=== PATIENT | female | born 1990 | race Caucasian/White ===

== ENCOUNTER 2017-07-31 14:42 | Observation (INO) ==
[2017-07-31 14:07] LABS: Amphetamine Screen,Urine Negative ng/mL (Cutoff=1000); Barbiturate Screen,Urine Negative ng/mL (Cutoff=200); Benzodiazepines Screen,Urine Negative ng/mL (Cutoff=200); Cannabinoid Screen,Urine Negative ng/mL (Cutoff = 50); Cocaine Screen,Urine Negative ng/mL (Cutoff= 300); Opiate Screen,Urine Negative ng/mL (Cutoff=300); Phencyclidine Screen,Urine Negative ng/mL (Cutoff=25)
[~2017-07-31 14:42] MED LIST: Ringers Solution, Lactated 1,000 ML IVC SCH; Ringers Solution, Lactated 1,000 ML ONE
--- NOTE | 2017-07-31 16:59 | OB/GYN Progress Note ---
Date of Encounter: 07/31/17 Time of Encounter: 16:57 - Assessment and Plan (1) 27 weeks gestation of Current Visit: Yes Status: Acute (2) Fall (on) (from) other stairs and steps, initial encounter Current Visit: Yes Status: Acute Contractions decreased after fluid bolus. Cervical exam shows closed internal OS. US obtained. A single live intrauterine is present. heart rate measures 131 beats per minute. There is normal body and limb movement. The fetus is in transverse position. The placenta is located anterior. Normal sonographic appearance of the placenta with no ultrasound findings to suggest abruption. The amniotic fluid volume is normal subjectively. Discussed with Dr. Yip. tracing appropriate for 27 weeks. Will discharge home with when to return precautions. Pt verbalizes understanding. Subjective - Subjective Interval history: 27+ weeks gestation presents to triage after fall down outside steps of home. Patient states she was carrying her 1-year-old when she fell striking her right hip and leg while falling down outside stairs. Reports good movement and contractions that are occasional tightness in her abdomen but not painful, denies vaginal bleeding or leaking of fluid. Blood type O positive Antepartum ROS: movement normal, contractions, no loss of fluid, no vaginal bleeding Objective - Vital Signs Vital Signs: Intake and Output 07/31/17 07/31/17 07/31/17 07:59 15:59 23:59 Other: Weight 118.5 kg Patient Weight 07/31/17 23:59 Weight 118.5 kg - Exam FHR: auscultation normal FHR comments: baseline 135 Auscultation: bilateral: normal Abdomen: Present: normal appearance, soft, gravid Uterus: Present: normal Cervical dilation: 1 external OS, closed internal OS
== END 2017-07-31 17:11 | disposition home or self-care (01) ==
LOC: 1NENULAB
PROVIDERS: ADMIT Obstetrics & Gynecology; ATTEND Obstetrics & Gynecology

== ENCOUNTER → 2017-09-26 17:50 | Observation (INO) ==
--- NOTE | 2017-09-26 16:28 | OB/GYN Progress Note ---
Date of Encounter: 09/26/17 Time of Encounter: 16:24 - Assessment and Plan (1) NST (non-stress test) with decelerations Current Visit: Yes Status: Acute Patient was seen in the office today and had late deceleration during her NST and was sent to L&D Continue monitoring FHR in the 140s NPO UDS NST reactive in triage. Discharge home after 2 hours of continuous monitoring. POC discussed with Dr. Casas (2) 35 weeks gestation of Current Visit: Yes Status: Acute Patient is 35w2d. Subjective - Subjective Interval history: Patient is a 27 year old femal at 35w2d presents to L&D for a decel on NST that she had today in the office. Patient states that she has been having contractions since her NST but has not been timing them. Denies loss of fluid, vaginal bleeding or discharge. Reports good movement. States the has been complicated by gestational diabetes that she takes metformin and insulin. States that she sees Dr. Mejia Antepartum ROS: new complaints (Decels on NST), movement normal, contractions, no loss of fluid, no vaginal bleeding Objective - Vital Signs Vital Signs: Intake and Output 09/26/17 09/26/17 09/26/17 07:59 15:59 23:59 Other: Weight 120.3 kg Patient Weight 09/26/17 23:59 Weight 120.3 kg - Exam FHR: auscultation normal (FHR in the 140s) Auscultation: bilateral: normal Abdomen: Present: normal appearance, soft, gravid
[2017-09-26 16:32] LABS: Amphetamine Screen,Urine Negative ng/mL (Cutoff=1000); Barbiturate Screen,Urine Negative ng/mL (Cutoff=200); Benzodiazepines Screen,Urine Negative ng/mL (Cutoff=200); Cannabinoid Screen,Urine Negative ng/mL (Cutoff = 50); Cocaine Screen,Urine Negative ng/mL (Cutoff= 300); Opiate Screen,Urine Negative ng/mL (Cutoff=300); Phencyclidine Screen,Urine Negative ng/mL (Cutoff=25)
== END | disposition home or self-care (01) ==
LOC: 1NENULAB
PROVIDERS: ADMIT Student in an Organized Health Care Education/Training Program; ATTEND Student in an Organized Health Care Education/Training Program

== ENCOUNTER 2017-10-10 08:00 | Inpatient (IN) ==
[2017-10-10] MEDS ORDERED: Ondansetron 4 MG/2 ML VIAL IVP PRN (09:01)
[2017-10-10] MEDS ORDERED: Famotidine 20 MG/2 ML VIAL IVP PRN (09:01)
[2017-10-10] MEDS ORDERED: *HR* Nalbuphine 20 MG/ML AMPUL IVP PRN (09:01)
[2017-10-10] MEDS ORDERED: Naloxone 0.4 MG/ML INJ IVP PRN (09:01)
[2017-10-10] MEDS ORDERED: miSOPROStol 25 MCG TABLET PO PRN (09:01)
[2017-10-10 09:15] LABS: Basophils % 0.1 %; Eosinophils # 0.1 K/mcL (0.0-0.6); Eosinophils % 0.6 %; Hematocrit 36.9 % (35.3-44.9); Hemoglobin 12.3 g/dL (11.5-15.4); Immature Granulocytes % 0.5 % (0-4); Lymphocytes # 2.1 K/mcL (0.6-4.6); Lymphocytes % 22.7 %; Mean Corpuscular HGB Conc 33.3 g/dL (31.6-35.5); Mean Corpuscular Hemoglobin 30.4 pg (28.0-33.3); Mean Corpuscular Volume 91.3 fL (83.0-100.0); Mean Platelet Volume 9.5 fL (9.4-12.4); Monocytes # 0.8 K/mcL (0.0-1.3); Monocytes % 8.2 %; Neutrophils # 6.3 K/mcL (1.6-8.9); Platelet Count 248 K/mcL (140-400); Red Blood Count 4.04 M/mcL (3.82-4.97); Red Cell Distribution Width 13.8 % (11.5-14.5); Segmented Neutrophils % 67.9 %
[2017-10-10] MEDS ORDERED: Ringers Solution, Lactated 1,000 ML IVC SCH (09:15)
[2017-10-10 09:31] LABS: BUN/Creatinine Ratio 15 (6-26); Blood Urea Nitrogen 8 mg/dL (6-20); Carbon Dioxide 23 mEq/L (23-29); Chloride 108 mEq/L (98-107); Glucose 86 mg/dL (70-105); Osmolality,Calculated 282 (280-300); Potassium 3.8 mEq/L (3.5-5.1); Sodium 137 mEq/L (136-145); eGFR For African Americans > 60 (> 60); eGFR For Non-African Americans > 60 (> 60)
[2017-10-10 09:52] LABS: Amphetamine Screen,Urine Negative ng/mL (Cutoff=1000); Barbiturate Screen,Urine Negative ng/mL (Cutoff=200); Benzodiazepines Screen,Urine Negative ng/mL (Cutoff=200); Cannabinoid Screen,Urine Negative ng/mL (Cutoff = 50); Cocaine Screen,Urine Negative ng/mL (Cutoff= 300); Opiate Screen,Urine Negative ng/mL (Cutoff=300); Phencyclidine Screen,Urine Negative ng/mL (Cutoff=25)
--- NOTE | 2017-10-10 10:09 | OB Labor Progress Note ---
Date of Encounter: 10/10/17 Time of Encounter: 10:06 Labor Progress Note - Subjective Subjective: Pt resting comfortably with no complaints at this time. - Cervix Cervix: 1/50/-3 - Heart Tones Heart Tones: Category II, one possible deceleration noted, moderate variability with accels now - Petros Petros: irregular UC - Interventions Interventions: Chan balloon placed in cervix using sterile technique. Balloon inflated with 60ml sterile water. Pt tolerated well. - Plan Plan: Continue to monitor. Anticipate .
--- NOTE | 2017-10-10 10:10 | OB/GYN History & Physical ---
Date of Encounter: 10/10/17 Time of Encounter: 09:48 Assessment and Plan (1) 37 weeks gestation of Current visit: Yes Status: Acute Plan: - admit to labor and delivery for induction of labor -obtain CBC and blood type and screen - Induced with Cytotect - augmented with nicole bulb with 60cc - FHT reassuring. FHR baseline= 150 - accu cheks Q4 hrs - anticipate normal IVD (2) Encounter for induction of labor Current visit: Yes Status: Acute early induction 2/2 hx of LGA and gestational diabetes. (3) Gestational diabetes Current visit: Yes Status: Acute accu cheks Q4 hrs Qualifiers: Gestational diabetes mellitus control: insulin-controlled Trimester: third trimester Qualified Code(s): O24.414 - Gestational diabetes mellitus in , insulin controlled (4) Morbid obesity with BMI of 45.0-49.9, adult Current visit: Yes Status: Acute (5) LGA (large for gestational age) fetus affecting management of mother Current visit: Yes Status: Acute hx of LGA 10lbs 14oz Qualifiers: Fetus number: single or unspecified fetus Trimester: third trimester Qualified Code(s): O36.63X0 - Maternal care for excessive growth, third trimester, not applicable or unspecified History of Present Illness Chief complaint: induction of labor HPI: Ms. Arechiga is a 27 year old female at 37 +2 days presented to labor and delivery for induction of labor 2/2 gestational diabetes and previous LGA at 10lbs 14oz. Patient denies having contractions, vaginal bleeding, or loss of fluid. Denies [place], changes in vision, dysuria, nausea, vomiting, fevers or chills. Patients is complicated by gestational diabetes, previous LGA , and morbid obesity. Patient's last dose of insulin was 6 units of insulin last night. Patient's morning glucose was 82. This past week morning glucoses have been between 69-85. PNL: Blood type O+, RPR neg, RI, HBsAg neg, HIV neg, GBS neg Past Med Surg Social Fam HX - Past Medical History Medical history: no medical history Psychiatric history: no psych history - Past Surgical History Surgical History: no surgical history - Social History Smoking Status: Never smoker Smokeless Tobacco Status: No Alcohol use: none Drug use: none - Family History Father Living Status: Still Living Hx Family Cardiac Disorders: Yes (hypertension) Hx Family Respiratory Disorders: No Hx Family Cancer: No Hx Family GI Disorders: No Hx Family Genitourinary Disorders: No Hx Family Endocrine Disorder: No Hx Family Musculoskeletal Disorders: No Hx Family Neuromuscular Disorders: No Hx Family Neurologic Disorders: No Hx Family HEENT Disorders: No Hx Family Autoimmune Disorders: No Hx Family Reproductive Disorders: No Hx Family Psychosocial Disorders: No Hx Family Medical Disorders: No Mother Living Status: Still Living Hx Family Cardiac Disorders: No Hx Family Respiratory Disorders: No Hx Family Cancer: No Hx Family GI Disorders: No Hx Family Endocrine Disorder: No Hx Family Neuromuscular Disorders: No Hx Family Neurologic Disorders: No Hx Family HEENT Disorders: No Hx Family Autoimmune Disorders: No Obstetrical History - Pregnancies : 7 Para: 3 Term: 0 : 0 Ab's: 3 Livin - History/Complications History/Complications: Total pregnancies 7. Total living children 3. Miscarriage(s) 3. # 1: spontaneous . # 2: normal spontaneous vaginal delivery () , 39 w, 8 Lbs 8 Oz, Male, Bjorn. # 3 spontaneous . # 4: normal spontaneous vaginal delivery (), 39 w, 9 Lb 7 Oz, Male, Yasmany. # 5: normal spontaneous vaginal delivery (), 40 w, 10 Lb 14 Oz, Male, Talat. # 6 spontaneous . Medications and Allergies Aspirin [Lo-Dose Aspirin EC] 81 mg PO DAILY 12/19/16 [History] Insulin NPH [HumuLIN NPH] 3 units SQ HS 07/31/17 [History] metFORMIN [Glucophage] 1,000 mg PO DAILY 07/31/17 [History] Vitamins 1 tab PO DAILY 09/26/17 [History] 3 Allergy/AdvReac Type Severity Reaction Status Date / Time No Known Allergies Allergy Verified 02/27/17 13:18 Review of System OB All systems PM: reviewed and no additional remarkable complaints except as stated Exam - Vital Signs Vital signs: BP: 133/84, HR: 90 - Constitutional Constitutional: well nourished, no acute distress, morbidly obese - HEENT HEENT: Normocephaly, Mucus Membranes Moist - Neck Neck exam: full ROM - Lungs Respiratory exam: CTAB - Cardiovascular Cardiovascular exam: RRR - Abdomen Abdomen: Present: non tender - Extremities Extremities exam: pedal edema - Vulva Vulva: bilateral: normal - Vagina Vagina: Present: normal moisture - Cervix Dilation: 2 (per nurse) Effacement: 60 (per nurse) Station: -3 - Uterus Uterus exam: Present: normal size Results Result Diagrams: 10/10/17 08:40 10/10/17 08:40 Abnormal lab results Chloride 108 mEq/L (98-107) H 10/10/17 08:40 Creatinine 0.53 mg/dL (0.60-1.20) L 10/10/17 08:40 All other labs normal. - VTE Reasons for not Prescribing Prophylaxis: Treatment not Indicated - Low risk for VTE
--- NOTE | 2017-10-10 12:26 | OB Labor Progress Note ---
Date of Encounter: 10/10/17 Time of Encounter: 12:24 Labor Progress Note - Subjective Subjective: Pt comfortable at this time with nicole out. - Cervix Cervix: 4-5/70/-2 - Heart Tones Heart Tones: Category I - [place]: irregular - Interventions Interventions: AROM for moderate amount clear fluid. - Plan Plan: Continue to monitor. Epidural when requested. Anticipate .
[2017-10-10] MEDS ORDERED: Oxytocin 20 units/ LR 1000 mL 20 UNIT/1,000 ML BAG IVC SCH (15:15)
[2017-10-10] MEDS ORDERED: Epidural Premix (fent/bupiv) 110 ML EP ONE ×2 (17:28→23:47)
[2017-10-10] MEDS ORDERED: Epidural Premix (fent/bupiv) 110 ML EP SCH (17:30)
--- NOTE | 2017-10-10 20:34 | Anesthesia Evaluation PreOp ---
Date of Encounter: 10/10/17 Time of Encounter: 17:30 - Past History Planned Operation: molly Cardiac History: Denies any Significant Hx Pulmonary History: Denies Any Significant HX QUALITY CONSULTANT History: Denies Any Significant HX Other Medical History: Denies Any Significant HX Anesthesia History: No Prior Anesthetic Complications : Yes Test: Positive Alcohol Use: none Drug use: none Medications and Allergies Aspirin [Lo-Dose Aspirin EC] 81 mg PO DAILY 12/19/16 [History] Insulin NPH [HumuLIN NPH] 3 units SQ HS 07/31/17 [History] metFORMIN [Glucophage] 1,000 mg PO DAILY 07/31/17 [History] Vitamins 1 tab PO DAILY 09/26/17 [History] 3 Allergy/AdvReac Type Severity Reaction Status Date / Time No Known Allergies Allergy Verified 02/27/17 13:18 - Meds/Allergy Pre-op Review Medications Reviewed: Yes Allergies Reviewed: Yes Beta Blockers on Current Med List: No Anesthesia Results - Labs 10/10/17 08:40 10/10/17 08:40 Anesthesia Exam Height: 64 Weight: 120 NPO (# of Hours): mn Pain Scale: 8 - HEENT Pupil (Motor): Pupils equal Mallampati: II Teeth: Normal Oral Opening: Greater than 3 - QUALITY CONSULTANT LOC: Oriented QUALITY CONSULTANT Motor: Normal RUE, Normal LUE, Normal RLE, Normal LLE, Normal Face QUALITY CONSULTANT Sensory: Normal: RUE, LUE, RLE, LLE, Face - Cardiac Rhythm: Regular Murmur: None JVD: No Carotid Bruit: No - Pulmonary Breath Sounds: bilateral Clear Respiratory Effort: Symmetrical Anesthesia Assess/Plan ASA Score: 2 Modified Brian Scale for Level of Consciousness: Cooperative, oriented, and tranquil Anesthetic Plan: Regional Autologous Blood: No Monitoring Plan: Standard Monitors
--- NOTE | 2017-10-10 20:36 | Anesthesia Procedures ---
Date of Encounter: 10/10/17 Time of Encounter: 17:30 Procedures: Anesthesia - Epidural/Spinal Patient ID/Chart reviewed: Yes Patient examined: Yes OB Eval: Gestational age: 37.2 OB Eval: : 7 OB Eval: Hx Para: 3 OB Eval: Dilated at (cm): 5 OB Eval: Contractions: Non-stressed pattern Consent Obtained: Yes Site Prep: Aseptic Technique, Sterile prep and drape, Povidone-Iodine 1% Patient position: upright Amount of Local Anesthetic used: 3 Touhy Needle Gauge: 18 Touhy Needle Depth (cm): 8 Catheter Depth at Skin (cm): 9 Test Dose (1.5% Lido + Epi): Volume given (mls): 3 Test Dose Result: Negative Loading Dose Administered: Thru Catheter Infusion Rate (mls/hr): [address]: Tegaderm, Tape Interspace Used: L4-L5 Loss of Resistance (GUS): Yes Blood: No CSF: No Paresthesia: No Vitals + FHT's: stable throughout see nursing notes
--- NOTE | 2017-10-10 20:38 | OB Labor Progress Note ---
Date of Encounter: 10/10/17 Time of Encounter: 20:30 Labor Progress Note - Subjective Subjective: Pt comfortable with epidural. - Cervix Cervix: 5-6/80/-2 - Heart Tones Heart Tones: Category II, occassional variables, moderate variability - Interventions Interventions: IUPC and FSE placed - Plan Plan: Continue to monitor. Reposition frequently. Anticipate .
[2017-10-10] MEDS ORDERED: 0.9 % Sodium Chloride 1,000 ML ONE (22:41)
--- NOTE | 2017-10-10 22:52 | OB Labor Progress Note ---
Date of Encounter: 10/10/17 Time of Encounter: 22:50 Labor Progress Note - Subjective Subjective: Pt comfortable - Cervix Cervix: 7/80/-2 - Heart Tones Heart Tones: Category II, variable decelerations present - [place]: 2-3.5 - Interventions Interventions: IUPC replaced, pt repositioned, amnioinfusion ordered - Plan Plan: Amnioinfusion, anticipate
[2017-10-10] MEDS ORDERED: ROPIVACAINE HCL/PF 0.5% 30 ML VIAL ONE (23:55)
[2017-10-11] MEDS ORDERED: Metoclopramide 10 MG/2 ML VIAL IVP ONE (02:31)
--- NOTE | 2017-10-11 02:32 | OB Labor Progress Note ---
Date of Encounter: 10/11/17 Time of Encounter: 20:00 Labor Progress Note - Subjective Subjective: Patient having multiple variables and has not progressed from 7-8cm, -2, and 80 % in 4 hours. - Vital Signs Vital Signs: stable. - Cervix Cervix: 7-8cm per Dr. Mejia - Heart Tones Heart Tones: FHR baseline = 140 with accelerations but multiple variables - [place]: contractions 2-4 minutes - Interventions Interventions: cervical exam performed: 7-8cm, 80%, and -2 - Plan Plan: Proceed to CS for failure to progress.
[2017-10-11] MEDS ORDERED: *HR* Phenylephrine 10 MG/ML VIAL ONE (02:39)
[2017-10-11] MEDS ORDERED: Ringers Solution, Lactated 1,000 ML ONE ×2 (02:40→03:12)
[2017-10-11] MEDS ORDERED: *HR* Oxytocin 10 UNIT/ML VIAL IM ONE ×2 (02:40→03:22)
[2017-10-11] MEDS ORDERED: Lidocaine/EPI 1:200k 2% PF 20 ML VIAL ONE (02:40)
[2017-10-11] MEDS ORDERED: Dexamethasone 4 MG/ML VIAL ONE (02:43)
[2017-10-11] MEDS ORDERED: Ondansetron 4 MG/2 ML VIAL ONE (02:43)
[2017-10-11] MEDS ORDERED: EPHEDrine 50 MG/ML VIAL ONE (02:44)
[2017-10-11] MEDS ORDERED: *HR* Morphine 2 MG/ML SYRINGE IVP PRN (03:29)
[2017-10-11] MEDS ORDERED: Ondansetron 4 MG/2 ML VIAL IVP ONE (03:29)
[2017-10-11] MEDS ORDERED: *HR* Meperidine 25 MG/ML SYRINGE IVP PRN (03:29)
[2017-10-11] MEDS ORDERED: Morphine Sulfate/PF 5mg/10mL Vial ONE (03:34)
--- NOTE | 2017-10-11 04:21 | OB/GYN Procedure Note ---
Section - Date of procedure: 10/11/17 Preop diagnosis: arrest of descent, arrest of dilation Post-op diagnosis: same Procedure: primary low transverse Surgeon: Kamran Mejia Estimated blood loss (cc): 700 Was there an material assistant present: Yes Reformatory Attendant: Kari Flores Anesthesiologist: Axel Durham Anesthesia Type: None section complications: none Disposition: PACU Specimens: Placenta - Infant (s) Infant A Delivery Date: 10/11/17 Presentation: vertex Position: MARCI Gender: Male Viability: Viable Pounds: 8 Ounces: 7 at 1 minute: 7 at 5 minutes: 8 Cord: nuchal reduced - Narrative Narrative: Patient was taken to the operating room. After satisfactory anesthesia was achieved, she was placed in supine position, Chan catheter inserted, and prepped and draped in usual manner. After appropriate timeout, the abdomen was entered through standard Maylard incision. The Tita retractor was placed. The peritoneum overlying the lower uterine segment was incised in a U-shaped fashion. Uterine cavity was entered sharply extended laterally. With fundal pressure the head was delivered. Nuchal Cord was relieved. The remainder of the was removed, the cord double clamped and cut, and infant handed to nursery staff for further evaluation. Placenta was removed and sent to pathology for analysis. The uterus was closed in a single layer using 0 Monocryl. After assurance of hemostasis, the abdomen was closed in a fashion using 0 Vicryl in the fascia and 3-0 Monocryl on the skin. Sterile dressing was applied. She did well and was taken to recovery room in satisfactory condition. Counts were correct.
[2017-10-11] MEDS ORDERED: Metoclopramide 10 MG/2 ML VIAL IVP PRN (06:41)
[2017-10-11] MEDS ORDERED: Oxytocin 20 units/ LR 1000 mL 20 UNIT/1,000 ML BAG IVC SCH (06:41)
[2017-10-11] MEDS ORDERED: Acetaminophen 325 MG TABLET PO PRN (06:41)
[2017-10-11] MEDS ORDERED: Sennosides 8.6 MG TABLET PO PRN (06:41)
[2017-10-11] MEDS ORDERED: Ondansetron 4 MG/2 ML VIAL IVP PRN (06:41)
[2017-10-11] MEDS ORDERED: Simethicone 80 MG TAB.CHEW PO PRN (06:41)
[2017-10-11] MEDS ORDERED: NON-FORMULARY MEDICATION 1 EACH EACH (Prenatal Vitamins 1 TAB) PO SCH (09:00)
[2017-10-11] MEDS: Ibuprofen 600 MG TABLET PO PRN ×2 (15:53→22:05)
[2017-10-12] MEDS: Ibuprofen 600 MG TABLET PO PRN ×4 (04:19→22:32)
[2017-10-12 06:59] LABS: Basophils % 0.2 %; Eosinophils # 0.1 K/mcL (0.0-0.6); Eosinophils % 0.7 %; Hematocrit 29.7 % (35.3-44.9); Immature Granulocytes % 0.4 % (0-4); Lymphocytes % 27.9 %; Mean Corpuscular Hemoglobin 30.5 pg (28.0-33.3); Mean Corpuscular Volume 95.5 fL (83.0-100.0); Mean Platelet Volume 9.6 fL (9.4-12.4); Monocytes % 9.6 %; Neutrophils # 6.6 K/mcL (1.6-8.9); Platelet Count 184 K/mcL (140-400); Red Blood Count 3.11 M/mcL (3.82-4.97); Red Cell Distribution Width 14.2 % (11.5-14.5); Segmented Neutrophils % 61.2 %
[2017-10-12 07:00] LABS: Hemoglobin 9.5 g/dL (11.5-15.4)
[2017-10-12] MEDS: Prenatal Vit/FA 1 EACH TABLET PO SCH (08:59)
--- NOTE | 2017-10-12 10:54 | OB/GYN Progress Note ---
Date of Encounter: 10/12/17 Time of Encounter: 09:25 - Assessment and Plan (1) 37 weeks gestation of Current Visit: Yes Status: Acute Plan: - ANYA dressing in place, without drainage present - continue to encourage - continue current management except stop accu checks - anticipate discharge tomorrow I examined this patient and my medical decision-making was reviewed with the Resident Physician. I agree with the documented findings, disposition and treatment plan as described except to the extent set forth below. Michael Casas MD (2) Encounter for induction of labor Current Visit: Yes Status: Acute early induction 2/2 hx of LGA and gestational diabetes. (3) Gestational diabetes Current Visit: Yes Status: Acute accu checks discontinued today. Qualifiers: Gestational diabetes mellitus control: insulin-controlled Trimester: third trimester Qualified Code(s): O24.414 - Gestational diabetes mellitus in , insulin controlled (4) Morbid obesity with BMI of 45.0-49.9, adult Current Visit: Yes Status: Acute (5) LGA (large for gestational age) fetus affecting management of mother Current Visit: Yes Status: Acute hx of LGA 10lbs 14oz Qualifiers: Fetus number: single or unspecified fetus Trimester: third trimester Qualified Code(s): O36.63X0 - Maternal care for excessive growth, third trimester, not applicable or unspecified Subjective - Subjective Principal diagnosis: induction of labor Interval history: Patient is doing well this morning. Pain is currently well controlled on Motrin. Admits to light lochia, + voiding, + gas. Tolerating regular diet without N/V. Patient's blood glucoses ave not needed intervention. Patient is breast feeding which was going well until baby had to be taken to the nursery for low blood glucoses. Patient reports: appetite normal, voiding normally, pain well controlled, ambulating normally [place]: nursing well, other (low blood glucose) Objective - Vital Signs Latest vital signs: Vital Signs Temp Pulse Resp BP Pulse Ox 10/12/17 09:30 97.6 F 72 18 97/66 98 10/12/17 04:15 98.6 F 75 16 108/71 96 10/11/17 23:30 98.1 F 76 16 113/73 97 10/11/17 19:45 98.5 F 74 16 108/71 97 10/11/17 16:00 98.6 F 76 16 111/76 98 10/11/17 12:56 98.4 F 67 16 102/54 96 10/11/17 12:00 16 Intake and Output 10/11/17 10/12/17 10/12/17 23:59 07:59 15:59 Intake Total 600 / 600 400 / 400 200 / 200 Output Total 1675 / 1675 500 / 500 Balance -1075 / -1075 -100 / -100 200 / 200 Intake: Oral 600 / 600 400 / 400 200 / 200 Output: Urine 200 / 200 500 / 500 Catheter 1475 / 1475 Other: Weight 114.714 kg Blood Glucose* 126 Patient Weight 10/12/17 23:59 Weight 114.714 kg - Exam Lungs: bilateral: normal Extremities: Present: normal Abdomen: Present: normal appearance, soft Incision: Present: dry, intact, dressed (no blood seen on dressing ) Uterus: Present: normal - Labs Labs: Laboratory Results - last 24 hr 10/11/17 10/12/17 20:58 06:15 WBC 10.8 RBC 3.11 L Hgb 9.5 L D Hct 29.7 L MCV 95.5 MCH 30.5 MCHC 32.0 RDW 14.2 Plt Count 184 MPV 9.6 Immature Gran % 0.4 Seg Neutrophils % 61.2 Lymphocytes % 27.9 Monocytes % 9.6 Eosinophils % 0.7 Basophils % 0.2 Neutrophils # 6.6 Lymphocytes # 3.0 Monocytes # 1.0 Eosinophils # 0.1 Basophils # 0.0 POC Glucose 126 H
[2017-10-12] MEDS: *HR* OxyCODONE/APAP 5/325 TABLET PO PRN (19:18)
[2017-10-13] MEDS: Ibuprofen 600 MG TABLET PO PRN ×4 (04:32→22:52)
[2017-10-13] MEDS: *HR* OxyCODONE/APAP 5/325 TABLET PO PRN ×2 (07:31→20:10)
[2017-10-13] MEDS: Prenatal Vit/FA 1 EACH TABLET PO SCH (09:40)
--- NOTE | 2017-10-13 10:42 | Discharge Summary ---
Date of Encounter: 10/13/17 Time of Encounter: 10:54 - Discharge Diagnosis (1) Status post delivery Priority: Primary Status: Acute Comments: Doing well s/p primary C/S day 2 Pain is well controlled Lochia is light and without clots Tolerating regular diet; voiding and passing flatus without difficulty VSS Meeting appropriate milestones Patient requests Day 3 discharge; Discharge Rx given today for patient to have family p/u prior to Holiday tomorrow. (2) Gestational diabetes Priority: Secondary Status: Acute Qualifiers: Gestational diabetes mellitus control: insulin-controlled Trimester: third trimester Qualified Code(s): O24.414 - Gestational diabetes mellitus in , insulin controlled - Discharge Medications Prescriptions: Ibuprofen [Motrin] 600 mg PO Q6HR PRN #30 tablet PRN Reason: Cramping and mild pain OxyCODONE/APAP 5/325 [Percocet 5/325 MG] 1 each PO Q6HR PRN #20 tablet PRN Reason: Moderate pain 4-6 Breast Pump [BREAST PUMP] 1 each .ROUTE AD #1 each Docusate [Colace] 100 mg PO BID PRN #20 capsule PRN Reason: Constipation Ferrous Sulfate 325 mg PO DAILY #30 tablet Home Medications: Aspirin [Lo-Dose Aspirin EC] 81 mg PO DAILY 12/19/16 [History] Vitamins 1 tab PO DAILY 09/26/17 [History] Breast Pump [BREAST PUMP] 1 each .ROUTE AD #1 each 10/13/17 [Rx] Docusate [Colace] 100 mg PO BID PRN #20 capsule 10/13/17 [Rx] Ferrous Sulfate 325 mg PO DAILY #30 tablet 10/13/17 [Rx] Ibuprofen [Motrin] 600 mg PO Q6HR PRN #30 tablet 10/13/17 [Rx] OxyCODONE/APAP 5/325 [Percocet 5/325 MG] 1 each PO Q6HR PRN #20 tablet 10/13/17 [Rx] Simethicone [Gas-X] 80 mg PO TID PRN tab.chew 10/13/17 [Rx] Allergies/Adverse Reactions: 3 Allergy/AdvReac Type Severity Reaction Status Date / Time No Known Allergies Allergy Verified 02/27/17 13:18 Data Procedures and tests throughout hospitalization: Laboratory Tests 10/10/17 10/10/17 10/10/17 08:40 08:40 08:40 WBC 9.4 RBC 4.04 Hgb 12.3 Hct 36.9 MCV 91.3 MCH 30.4 MCHC 33.3 RDW 13.8 Plt Count 248 MPV 9.5 Immature Gran % 0.5 Seg Neutrophils % 67.9 Lymphocytes % 22.7 Monocytes % 8.2 Eosinophils % 0.6 Basophils % 0.1 Neutrophils # 6.3 Lymphocytes # 2.1 Monocytes # 0.8 Eosinophils # 0.1 Basophils # 0.0 Sodium 137 Potassium 3.8 Chloride 108 H Carbon Dioxide 23 BUN 8 Creatinine 0.53 L Est GFR ( Amer) > 60 Est GFR (Non-Af Amer) > 60 BUN/Creatinine Ratio 15 Glucose 86 POC Glucose Calculated Osmolality 282 Calcium 9.0 Urine Opiates Screen Negative Ur Barbiturates Screen Negative Ur Phencyclidine Scrn Negative Ur Amphetamines Screen Negative U Benzodiazepines Scrn Negative Urine Cocaine Screen Negative U Marijuana (THC) Screen Negative 10/11/17 10/11/17 10/12/17 07:59 20:58 06:15 WBC 10.8 RBC 3.11 L Hgb 9.5 L D Hct 29.7 L MCV 95.5 MCH 30.5 MCHC 32.0 RDW 14.2 Plt Count 184 MPV 9.6 Immature Gran % 0.4 Seg Neutrophils % 61.2 Lymphocytes % 27.9 Monocytes % 9.6 Eosinophils % 0.7 Basophils % 0.2 Neutrophils # 6.6 Lymphocytes # 3.0 Monocytes # 1.0 Eosinophils # 0.1 Basophils # 0.0 Sodium Potassium Chloride Carbon Dioxide BUN Creatinine Est GFR ( Amer) Est GFR (Non-Af Amer) BUN/Creatinine Ratio Glucose POC Glucose 117 H 126 H Calculated Osmolality Calcium Urine Opiates Screen Ur Barbiturates Screen Ur Phencyclidine Scrn Ur Amphetamines Screen U Benzodiazepines Scrn Urine Cocaine Screen U Marijuana (THC) Screen Date of admission: 10/10/17 08:13 Primary care physician: Mira Sage Discharging clinician: Josefina Bryant Anticipated date of discharge: 10/14/17 - Patient Status Disposition: Home, Self-Care Condition: Good Functional capacity at discharge: independent ambulation Overall status at discharge: patient is progressing back to baseline - Discharge Instructions Follow Up With: Mira Jiménez MD [Primary Care Provider] - Kamran Mejia MD [Partnered Physician] - - Diet and Activity Activity: increase activity as tolerated Diet: regular diet Hospital Course Reason for admission: induction of labor, IUP at term Delivery: section Episiotomy: none Laceration: none Other procedures: none complications: none Discharge diagnosis: IUP at term delivered [place] baby: male Time Attestation: Total time spent providing and/or coordinating discharge services: Time Spent: Less than 30 minutes - VTE Reasons for not Prescribing Prophylaxis: Treatment not Indicated - Low risk for VTE Documentation of Mechanical Device: Intermittent pneumatic compression device Exam - Constitutional Vitals: Temp Pulse Resp BP Pulse Ox 97.7 F 68 16 105/66 98 10/13/17 09:50 10/13/17 09:50 10/13/17 09:50 10/13/17 09:50 10/13/17 09:50 General appearance IM: cooperative, A&O X 3, pleasant - Respiratory Respiratory exam: Present: CTAB - Cardiovascular Cardiovascular exam IM: Present: RRR, +S1, +S2 - GI/Abdominal GI/Abdominal exam IM: normal bowel sounds, soft Incision: normal, dry, intact (Sandra dressing clean, dry, intact) - Uterine Tone: Firm Uterus Position: At Umbilicus, Midline - Extremities Exam Extremities exam IM: Present: normal capillary refill, normal inspection, pedal edema (1+), radial pulses palpable and symmetrical - Neurological Exam Neurological exam: alert, oriented X3
[2017-10-14] MEDS: Ibuprofen 600 MG TABLET PO PRN ×2 (04:51→11:37)
--- NOTE | 2017-10-14 07:47 | Discharge Summary ---
Date of Encounter: 10/14/17 Time of Encounter: 07:45 - Discharge Diagnosis (1) Status post delivery Priority: Primary Status: Acute - Discharge Medications Prescriptions: Ibuprofen [Motrin] 600 mg PO Q6HR PRN #30 tablet PRN Reason: Cramping and mild pain OxyCODONE/APAP 5/325 [Percocet 5/325 MG] 1 each PO Q6HR PRN #20 tablet PRN Reason: Moderate pain 4-6 Breast Pump [BREAST PUMP] 1 each .ROUTE AD #1 each Docusate [Colace] 100 mg PO BID PRN #20 capsule PRN Reason: Constipation Ferrous Sulfate 325 mg PO DAILY #30 tablet Home Medications: Aspirin [Lo-Dose Aspirin EC] 81 mg PO DAILY 12/19/16 [History] Vitamins 1 tab PO DAILY 09/26/17 [History] Breast Pump [BREAST PUMP] 1 each .ROUTE AD #1 each 10/13/17 [Rx] Docusate [Colace] 100 mg PO BID PRN #20 capsule 10/13/17 [Rx] Ferrous Sulfate 325 mg PO DAILY #30 tablet 10/13/17 [Rx] Ibuprofen [Motrin] 600 mg PO Q6HR PRN #30 tablet 10/13/17 [Rx] OxyCODONE/APAP 5/325 [Percocet 5/325 MG] 1 each PO Q6HR PRN #20 tablet 10/13/17 [Rx] Simethicone [Gas-X] 80 mg PO TID PRN tab.chew 10/13/17 [Rx] Allergies/Adverse Reactions: 3 Allergy/AdvReac Type Severity Reaction Status Date / Time No Known Allergies Allergy Verified 02/27/17 13:18 Data Procedures and tests throughout hospitalization: Laboratory Tests 10/10/17 10/10/17 10/10/17 08:40 08:40 08:40 WBC 9.4 RBC 4.04 Hgb 12.3 Hct 36.9 MCV 91.3 MCH 30.4 MCHC 33.3 RDW 13.8 Plt Count 248 MPV 9.5 Immature Gran % 0.5 Seg Neutrophils % 67.9 Lymphocytes % 22.7 Monocytes % 8.2 Eosinophils % 0.6 Basophils % 0.1 Neutrophils # 6.3 Lymphocytes # 2.1 Monocytes # 0.8 Eosinophils # 0.1 Basophils # 0.0 Sodium 137 Potassium 3.8 Chloride 108 H Carbon Dioxide 23 BUN 8 Creatinine 0.53 L Est GFR ( Amer) > 60 Est GFR (Non-Af Amer) > 60 BUN/Creatinine Ratio 15 Glucose 86 POC Glucose Calculated Osmolality 282 Calcium 9.0 Urine Opiates Screen Negative Ur Barbiturates Screen Negative Ur Phencyclidine Scrn Negative Ur Amphetamines Screen Negative U Benzodiazepines Scrn Negative Urine Cocaine Screen Negative U Marijuana (THC) Screen Negative 10/11/17 10/11/17 10/12/17 07:59 20:58 06:15 WBC 10.8 RBC 3.11 L Hgb 9.5 L D Hct 29.7 L MCV 95.5 MCH 30.5 MCHC 32.0 RDW 14.2 Plt Count 184 MPV 9.6 Immature Gran % 0.4 Seg Neutrophils % 61.2 Lymphocytes % 27.9 Monocytes % 9.6 Eosinophils % 0.7 Basophils % 0.2 Neutrophils # 6.6 Lymphocytes # 3.0 Monocytes # 1.0 Eosinophils # 0.1 Basophils # 0.0 Sodium Potassium Chloride Carbon Dioxide BUN Creatinine Est GFR ( Amer) Est GFR (Non-Af Amer) BUN/Creatinine Ratio Glucose POC Glucose 117 H 126 H Calculated Osmolality Calcium Urine Opiates Screen Ur Barbiturates Screen Ur Phencyclidine Scrn Ur Amphetamines Screen U Benzodiazepines Scrn Urine Cocaine Screen U Marijuana (THC) Screen Date of admission: 10/10/17 08:13 Primary care physician: Mira Sage Discharging clinician: Alex Pearl Anticipated date of discharge: 10/14/17 - Patient Status Disposition: Home, Self-Care Condition: Good Functional capacity at discharge: independent ambulation Overall status at discharge: patient is progressing back to baseline - Discharge Instructions Follow Up With: Mira Jiménez MD [Primary Care Provider] - Kamran Mejia MD [Partnered Physician] - Additional Instructions: . - Diet and Activity Activity: increase activity as tolerated Diet: advance to your usual diet Hospital Course Reason for admission: induction of labor Delivery: section Episiotomy: none Laceration: none Other procedures: none complications: none Discharge diagnosis: IUP at term delivered Hospital course: Patient is a 27-year-old female who was brought in for an induction of labor secondary to history of LGA baby. She had a baby that weighed over 10 pounds and baby was measuring larger than dates. Patient was induced but baby would not come down. She underwent a primary section for arrest of descent. Hospital course was unremarkable. Her other than the baby had high bilirubin and has been under lights. Patient's diet was advanced and patient was having minimal pain well controlled with pain medication. She is breast-feeding and is going well. Patient will be discharged home and will follow up in 2 weeks with her primary [employer]. Patient already has prescriptions. Time Attestation: Total time spent providing and/or coordinating discharge services: - VTE Reasons for not Prescribing Prophylaxis: Treatment not Indicated - Low risk for VTE Documentation of Mechanical Device: Intermittent pneumatic compression device Exam - Constitutional Vitals: Temp Pulse Resp BP Pulse Ox 98.7 F 75 14 118/81 98 10/13/17 21:10 10/13/17 21:10 10/13/17 21:10 10/13/17 21:10 10/13/17 21:10 General appearance IM: cooperative, A&O X 3, pleasant - Respiratory Respiratory exam: Present: CTAB - Cardiovascular Cardiovascular exam IM: Present: RRR - GI/Abdominal GI/Abdominal exam IM: normal bowel sounds Incision: dry, intact - Rectal Rectal exam: deferred
[2017-10-14 08:22] VITALS: BP 110/67
[2017-10-14] MEDS: Prenatal Vit/FA 1 EACH TABLET PO SCH (08:42)
[2017-10-14] MEDS: *HR* OxyCODONE/APAP 5/325 TABLET PO PRN (08:42)
== END 2017-10-14 11:40 | disposition home or self-care (01) | DRG 765 ==
LOC: 1NENULAB 08:13 → 1NENUOBS 10-11 06:32
PROVIDERS: ADMIT Obstetrics & Gynecology; ATTEND Obstetrics & Gynecology

== ENCOUNTER → 2019-08-13 07:40 | Observation (INO) ==
[2019-08-12 20:41] LABS: Amphetamine Screen,Urine Negative ng/mL (Cutoff=1000); Barbiturate Screen,Urine Negative ng/mL (Cutoff=200); Benzodiazepines Screen,Urine Negative ng/mL (Cutoff=200); Cannabinoid Screen,Urine Negative ng/mL (Cutoff = 50); Cocaine Screen,Urine Negative ng/mL (Cutoff= 300); Opiate Screen,Urine Negative ng/mL (Cutoff=300); Phencyclidine Screen,Urine Negative ng/mL (Cutoff=25)
== END | disposition home or self-care (01) ==
LOC: 1NENULAB
PROVIDERS: ADMIT Registered Nurse; ATTEND Registered Nurse

== ENCOUNTER 2019-08-14 07:45 | Inpatient (IN) ==
[2019-08-18] MEDS ORDERED: Naloxone 0.4 MG/ML INJ IVP PRN (06:03)
[2019-08-18] MEDS ORDERED: Famotidine 20 MG/2 ML VIAL IVP PRN (06:03)
[2019-08-18] MEDS ORDERED: Ringers Solution, Lactated 1,000 ML IVC ONE (06:03)
[2019-08-18] MEDS ORDERED: Metoclopramide 10 MG/2 ML VIAL IVP PRN ×2 (06:03→11:50)
[2019-08-18] MEDS ORDERED: CeFAZolin Syr 3,000MG/30 ML 3,000 MG/30 ML SYRINGE IVPB ONE (06:03)
[2019-08-18] MEDS ORDERED: Ondansetron 4 MG/2 ML VIAL IVP PRN ×2 (06:46→11:50)
[2019-08-18] MEDS ORDERED: *HR* OxyCODONE/APAP 5/325 TABLET PO PRN ×2 (06:46→11:50)
[2019-08-18] MEDS ORDERED: Acetaminophen IV 1,000 MG/100 ML INFUS..BTL IVPB ONE (06:48)
[2019-08-18] MEDS ORDERED: *HR* Oxytocin 10 UNIT/ML VIAL IM ONE (07:10)
[2019-08-18] MEDS ORDERED: *HR* FentaNYL (PF) 100 MCG/2 ML VIAL ONE (07:10)
[2019-08-18] MEDS ORDERED: *HR* Phenylephrine 10 MG/ML VIAL ONE (07:10)
[2019-08-18] MEDS ORDERED: Ringers Solution, Lactated 1,000 ML ONE ×2 (07:10→07:33)
[2019-08-18] MEDS ORDERED: *HR* Morphine Sulfate/PF 10 MG/10 ML AMPUL ONE (07:10)
[2019-08-18 07:32] LABS: Basophils % 0.4 %; Eosinophils # 0.1 K/mcL (0.0-0.6); Eosinophils % 0.7 %; Hematocrit 36.4 % (35.3-44.9); Hemoglobin 12.4 g/dL (11.5-15.4); Immature Granulocytes % 0.7 % (0-4); Lymphocytes # 1.9 K/mcL (0.6-4.6); Mean Corpuscular HGB Conc 34.1 g/dL (31.6-35.5); Mean Corpuscular Hemoglobin 31.4 pg (28.0-33.3); Mean Corpuscular Volume 92.2 fL (83.0-100.0); Mean Platelet Volume 9.3 fL (9.4-12.4); Monocytes # 0.7 K/mcL (0.0-1.3); Neutrophils # 5.4 K/mcL (1.6-8.9); Platelet Count 231 K/mcL (140-400); Red Blood Count 3.95 M/mcL (3.82-4.97); Red Cell Distribution Width 14.1 % (11.5-14.5); Segmented Neutrophils % 66.2 %; White Blood Count 8.1 K/mcL (4.3-11.1)
[2019-08-18 07:34] LABS: Amphetamine Screen,Urine Negative ng/mL (Cutoff=1000); Barbiturate Screen,Urine Negative ng/mL (Cutoff=200)
[2019-08-18 07:35] LABS: Benzodiazepines Screen,Urine Negative ng/mL (Cutoff=300); Cannabinoid Screen,Urine Negative ng/mL (Cutoff = 50); Cocaine Screen,Urine Negative ng/mL (Cutoff= 300); Opiate Screen,Urine Negative ng/mL (Cutoff=300); Phencyclidine Screen,Urine Negative ng/mL (Cutoff=25)
[2019-08-18] MEDS ORDERED: EPHEDrine 50 MG/ML VIAL ONE (08:24)
[2019-08-18] MEDS ORDERED: Oxytocin 20 units/ LR 1000 mL 20 UNIT/1,000 ML BAG IVC ONE (11:32)
[2019-08-18] MEDS ORDERED: Rho Immune Globulin 1,500 UNIT SYRINGE IM ONE (11:50)
[2019-08-18] MEDS ORDERED: Simethicone 80 MG TAB.CHEW PO PRN (11:50)
[2019-08-18] MEDS ORDERED: Sennosides 8.6 MG TABLET PO PRN (11:50)
[2019-08-18] MEDS ORDERED: Oxytocin 20 units/ LR 1000 mL 20 UNIT/1,000 ML BAG IVC SCH (11:50)
[2019-08-18] MEDS: Ibuprofen 600 MG TABLET PO SCH (20:10)
[2019-08-19] MEDS: Ibuprofen 600 MG TABLET PO SCH ×4 (03:41→17:54)
[2019-08-19 06:01] LABS: Basophils % 0.2 %; Eosinophils % 0.3 %; Hematocrit 33.4 % (35.3-44.9); Hemoglobin 10.9 g/dL (11.5-15.4); Immature Granulocytes % 0.3 % (0-4); Lymphocytes # 1.5 K/mcL (0.6-4.6); Lymphocytes % 16.4 %; Mean Corpuscular HGB Conc 32.6 g/dL (31.6-35.5); Mean Corpuscular Hemoglobin 31.2 pg (28.0-33.3); Mean Corpuscular Volume 95.7 fL (83.0-100.0); Mean Platelet Volume 9.2 fL (9.4-12.4); Monocytes % 10.3 %; Neutrophils # 6.7 K/mcL (1.6-8.9); Platelet Count 181 K/mcL (140-400); Red Blood Count 3.49 M/mcL (3.82-4.97); Red Cell Distribution Width 14.4 % (11.5-14.5); Segmented Neutrophils % 72.5 %; White Blood Count 9.3 K/mcL (4.3-11.1)
[2019-08-19] MEDS ORDERED: NON-FORMULARY MEDICATION 1 EACH EACH (Prenatal Vitamins 1 TAB) PO SCH (09:00)
[2019-08-19] MEDS: Prenatal Vit/FA 1 EACH TABLET PO SCH (09:13)
[2019-08-19] MEDS: Aspirin Enteric Coated 81 MG Tablet PO SCH (09:14)
[2019-08-20] MEDS: Ibuprofen 600 MG TABLET PO SCH ×2 (00:02→09:47)
[2019-08-20 08:28] VITALS: BP 132/84
[2019-08-20] MEDS: Prenatal Vit/FA 1 EACH TABLET PO SCH (10:22)
[2019-08-20] MEDS: Aspirin Enteric Coated 81 MG Tablet PO SCH (10:23)
== END 2019-08-20 11:10 | disposition home or self-care (01) | DRG 788 ==
LOC: 1NENULAB 08-18 05:54 → 1NENUOBS 08-18 11:40
PROVIDERS: ADMIT Obstetrics & Gynecology; ATTEND Obstetrics & Gynecology